=== PATIENT | female | born 1995 | race Caucasian/White ===

== ENCOUNTER 2024-09-14 04:31 | Emergency (ER) | payer OTHER ==
[2024-09-14] MEDS: Bacitracin Oint 1 GM U/D Packet TOP ONE (05:21)
[2024-09-14] MEDS: Amoxicillin/Clavulanate K 875-125 MG Tab PO ONE (05:21)
[2024-09-14] MEDS: Diphtheria,Pertussis(Acell),Tetanus Vaccine 0.5 ML Syringe IM ONE (05:21)
== END 2024-09-14 05:46 | disposition home or self-care (01) ==
LOC: JP.ED 04:31
DX: S61.451A Open bite of right hand, initial encounter (principal); S61.452A Open bite of left hand, initial encounter; Z23 Encounter for immunization; W54.0XXA Bitten by dog, initial encounter
CPT/HCPCS: 90471; 90715; 99283; A9270